=== PATIENT | female | born 1995 | race Two or more races ===

== ENCOUNTER 2017-03-23 05:59 | Day surgery (SDC) | payer OTHER ==
[~2017-03-23] VITALS: Ht 149.9 cm; Wt 59.4 kg
[2017-03-23] MEDS ORDERED: MORPHINE SULFATE 4 MG/ML DISP.SYRIN. IV PRN (07:00)
[2017-03-23] MEDS ORDERED: LIDOCAINE 1% PF 2 ML VIAL. ID PRN (07:00)
[2017-03-23] MEDS ORDERED: fentaNYL PF VIAL 100 MCG/2 ML VIAL IV PRN ×2 (07:00)
[2017-03-23] MEDS ORDERED: HYDROmorphone 2 MG/ML VIAL IV PRN (07:00)
[2017-03-23] MEDS ORDERED: PROCHLORPERAZINE 10 MG/2 ML VIAL. IV PRN (07:00)
[2017-03-23] MEDS ORDERED: IV RINGERS,LACTATED 1000ML 1,000 ML IV SCH (07:00)
[2017-03-23] MEDS ORDERED: ONDANSETRON PF 4 MG/2 ML VIAL. IV PRN (07:00)
[2017-03-23 07:01] LABS: NEG OBC UR NEG; POS OBC UR POS
[2017-03-23] MEDS ORDERED: ONDANSETRON PF 4 MG/2 ML VIAL. ONE (07:16)
[2017-03-23] MEDS ORDERED: DEXAMETHASONE SOD PHOS 20 MG/5 ML VIAL. ONE (07:16)
[2017-03-23] MEDS ORDERED: LIDOCAINE 2% PF Vial for OR 5 ML VIAL. ONE (07:16)
[2017-03-23] MEDS ORDERED: PROPOFOL 20 ML IV ONE (07:16)
[2017-03-23] MEDS ORDERED: MIDAZOLAM HCL/PF 2 MG/2 ML VIAL. ONE (07:17)
--- NOTE | 2017-03-23 07:43 | PDOC1 ---
History and Physical Date of Admission Date of Admission DATE: 03/23/17 TIME: 07:38 Identification/Chief Complaint Chief Complaint Imbedded IUD Problems: Source Source: Patient History of Present Illness History of Present Illness As above Past Medical History Cardiovascular: No pertinent hx Pulmonary: No pertinent hx CENTRAL NERVOUS SYSTEM: Carpal Tunnel Syndrome GI: No pertinent hx Heme/Onc: No pertinent hx Hepatobiliary: No pertinent hx Psych: No pertinent hx Rheumatologic: No pertinent hx Infectious disease: No pertinent hx ENT: No pertinent hx Renal/: No pertinent hx Past Surgical History Past Surgical History: Cholecystectomy, Tonsillectomy Current Medications Current Medications Current Medications Ondansetron HCl (Zofran) 4 mg PRN Q6HRS PRN IV NAUSEA/VOMITING; Start at 07:00; Stop 03/23/17 at 18:00 Fentanyl Citrate (Fentanyl 2ml Vial) 25 mcg PRN Q5MIN PRN IV MILD PAIN; Start 03/23/17 at 07:00; Stop 03/23/17 at 18:00 Fentanyl Citrate (Fentanyl 2ml Vial) 50 mcg PRN Q5MIN PRN IV MODERATE PAIN; Start 03/23/17 at 07:00; Stop 03/24/17 at 06:59 Morphine Sulfate 1 mg PRN Q10MIN PRN IV SEVERE PAIN; Start 03/23/17 at 07:00; Stop 03/23/17 at 18:00 Ringer's Solution 1,000 ml @ 30 mls/hr Q24H IV Last administered on t 06:39; Start 03/23/17 at 07:00; Stop 03/23/17 at 18:59 Lidocaine HCl (Xylocaine-Mpf 1% Vial) 2 ml PRN 1X PRN ID IV START; Start 03/23 at 07:00; Stop 03/23/17 at 18:00 Hydromorphone HCl (Dilaudid) 0.5 mg PRN Q10MIN PRN IV SEV PAIN, Second choice; Start 03/23/17 at 07:00; Stop 03/23/17 at 18:00 Prochlorperazine Edisylate (Compazine) 5 mg PACU PRN PRN IV NAUSEA, MRX1; Start 03/23/17 at 07:00; Stop 03/23/17 at 18:00 Cefazolin Sodium 50 ml @ As Directed STK-MED ONCE IV ; Start 03/23/17 at 06:14 ; Stop 03/23/17 at 06:15; Status DC Cefazolin Sodium 50 ml @ 100 mls/hr 1X PREOP PRN IV PRIOR TO PROCEDURE; Start 03/23/17 at 07:01; Stop 03/24/17 at 07:00 Propofol 20 ml @ As Directed STK-MED ONCE IV ; Start 03/23/17 at 07:16; Stop 03/23/17 at 07:17; Status DC Dexamethasone Sodium Phosphate (Decadron) 20 mg STK-MED ONCE .ROUTE ; Start at 07:16; Stop 03/23/17 at 07:17; Status DC Lidocaine HCl (Lidocaine Pf 2% Vial) 5 ml STK-MED ONCE .ROUTE ; Start 03/23/17 at 07:16; Stop 03/23/17 at 07:17; Status DC Ondansetron HCl (Zofran) 4 mg STK-MED ONCE .ROUTE ; Start 03/23/17 at 07:16; Stop 03/23/17 at 07:17; Status DC Midazolam HCl (Versed) 2 mg STK-MED ONCE .ROUTE ; Start 03/23/17 at 07:17; Stop 03/23/17 at 07:18; Status DC Active Scripts Active Reported No Known Medications Prior To Admisstion (Info) Each 1 Each Allergies Allergies: Coded Allergies: No Known Drug Allergies (Unverified , 03/23/17) Physical Exam General: Alert, Oriented X3, Cooperative, No acute distress HEENT: PERRLA Lungs: Clear to auscultation, Normal air movement Breasts: Normal, Rt breast nml w/o mass, Lt breast nml w/o mass, Nipples normal Abdomen: Normal bowel sounds, Soft, No tenderness, No hepatosplenomegaly, No masses Male Genitals Exam: normal genitalia, normal prostate Extremities: No clubbing, No cyanosis, No edema, Normal pulses, No tenderness/ swelling Skin: No rashes, No breakdown, No significant lesion Neuro: Normal gait, Normal speech, Strength at 5/5 X4 ext, Normal tone, Sensation intact, Cranial nerves 3-12 NL, Reflexes 2+ Psych/Mental Status: Mental status NL, Mood NL Vitals Vitals Vital Signs Date Time Temp Pulse Resp B/P (MAP) Pulse Ox O2 Delivery O2 Flow Rate FiO2 03/23/17 06:38 97.8 70 18 118/56 100 Room Air 97.8 Labs Labs Laboratory Tests Test 03/23/17 06:00 Urine Test Negative (NEG) Laboratory Tests Test 03/23/17 06:00 Urine Test Negative (NEG) VTE Prophylaxis Ordered VTE Prophylaxis Devices: No VTE Pharmacological Prophylaxi: No Assessment/Plan Assessment/Plan Retained IUD Hysteroscopic removal and replacement under U/S guided LIDIA LOVE MD Mar 23, 2017 07:43
[2017-03-23] MEDS ORDERED: fentaNYL PF VIAL 100 MCG/2 ML VIAL ONE ×2 (07:54→08:46)
[2017-03-23] MEDS ORDERED: GLYCOPYRROLATE 1 MG/5 ML VIAL. ONE (08:04)
[2017-03-23] MEDS ORDERED: FAMOTIDINE 20 MG/2 ML VIAL ONE (08:08)
[2017-03-23] MEDS ORDERED: SEVOFLURANE 31 TO 60 MINUTES. IH ONE (08:14)
[2017-03-23] MEDS ORDERED: PHENYLEPHRINE in 0.9% NACL PF 1 MG/10 ML DISP.SYRIN. IV ONE (08:14)
--- NOTE | 2017-03-23 08:32 | PDOC ---
BRIEF OPERATIVE NOTE Pre-Op Diagnosis Embedded IUD Post-Op Diagnosis Same Procedure Performed IUD removal and insertion with hysteroscopic assistance and ultrasound guided Surgeon Adonis Anesthesia Type: General Blood Loss 20cc Complications None LIDIA LOVE MD Mar 23, 2017 08:32
[2017-03-23] MEDS ORDERED: AMOX1TAB10 PO (08:36)
[2017-03-23] MEDS ORDERED: HYDR-971 PO (08:36)
--- NOTE | 2017-03-23 09:03 | OP ---
DATE OF SURGERY: 03/23/2017 PREOPERATIVE DIAGNOSES: 1. Embedded IUD. 2. Desires replacement of IUD. POSTOPERATIVE DIAGNOSES: 1. Embedded IUD. 2. Desires replacement of IUD. PROCEDURE 1. Removal of embedded IUD. 2. Replacement of IUD under ultrasound guidance. SURGEON: Sonny Lamb MD MEDICAL OFFICE SECRETARY: None. ANESTHESIA: General. ESTIMATED BLOOD LOSS: 20 mL. FLUIDS: Crystalloid. SPECIMENS: None. COMPLICATIONS: None. CONDITION: Stable. DESCRIPTION OF PROCEDURE: Risks, benefits, indications, alternatives and expectations were discussed in detail with the patient. The patient was brought to the OR theater, placed in the dorsolithotomy position in [facility]. After adequate general anesthesia, the patient was prepped and draped in the usual sterile manner. A posterior weighted speculum was placed in the vaginal vault. Anterior curved Gianni was placed to displace the bladder superiorly. The IUD coming out distal in the cervix approximately a centimeter from the cervical os was identified. Attempts to push the IUD back through the cervix with a backing forceps was successful, so IUD was just pulled out the erosion through the cervix without any complications or bleeding. Hysteroscope was placed to assuring significant tears or perforations elsewhere in the cervix or the uterus. These appeared all normal. Under ultrasonic guidance, another Paragard was placed in the uterine cavity under ultrasound guidance with good application noted on abdominal ultrasound and transvaginal ultrasound. Sponge, needle and instrument counts were correct x 2 per the nursing staff. The patient went to postop anesthesia recovery in stable condition. SONNY LAMB MD DR: HOANG/janice JOB#: [id number] / [id number]
[2017-03-23 09:28] VITALS: BP 98/61
[2017-03-23] MEDS ORDERED: HYDROcodone/APAP 5/325MG 1 TAB TABLET PO PRN ×2 (09:30→09:45)
[2017-03-23] MEDS ORDERED: HYDROcodone/APAP 5/325MG 1 TAB TABLET ONE (09:34)
== END 2017-03-23 10:07 | disposition home or self-care (01) ==
LOC: SURG 05:59
PROVIDERS: ATTEND Specialist
DX: Z30.433 Encounter for removal and reinsertion of intrauterine contraceptive device (principal); Z79.899 Other long term (current) drug therapy; Z90.89 Acquired absence of other organs; F41.9 Anxiety disorder, unspecified; F32.9 Major depressive disorder, single episode, unspecified; Z87.440 Personal history of urinary (tract) infections
CPT/HCPCS: 58300; 76857; 81025; J0690; J0780; J1100; J2250; J2370; J2405; J2704; J3010; J3490; S0028; J2001